=== PATIENT | female | born 1960 | race Caucasian/White ===

== ENCOUNTER → 2017-04-18 | Outpatient (CLI) | payer OTHER ==
[~2017-04-18] MED LIST: ALBUTEROL17 GM INH; ASPIRIN PO; BENICAR PO; CIPRO250 M1 PO; CLARITIN PO; FLAGYL250 MG PO; FLEXERIL PO; FLEXERIL10 MG PO; FLOMAX0.4 MG PO; GUAIFENESIN/CODEINE; HIGH BLOOD PRESS MED PO; HYDROCODON-ACE1 EAC9 PO; IBUPROFEN PO; LINZESS PO; LORAZEPAM PO; LORTAB 5/500 TA1 TA2 PO; LORTAB 7.5-5001 TAB PO; NAPROSYN500 MG PO; NAPROXEN PO; PERCOCET5/325 PO; PRILOSEC PO; SKELAXIN PO; ZOFRAN ODT4 MG PO; ZOFRAN PO; [UNRECOGNIZED DRUG - REMARK]
--- NOTE | ~2017-04-18 | CT2 ---
[facility] RADIOLOGY TEXT RESULTS PATIENT: KATHRYN KELSEY LOCATION: [facility] : 58 UNIT #: [id number] AGE: [address]: ESTEE GAY APRN SEX: F ORDER DR: [id number] [address] [address] [id number] O MR#: [id number] Acc #: [id number] NAME: KATHRYN KELSEY : 1960 SEX: F STUDY DATE/TIME: 04/18/2017 13:07 UNIT: [facility] ROOM: STUDY DESCRIPTION: CT Abd and Pelv W Cont Attending Physician: Estee Gay Referring Physician: Estee Gay Ordering Physician: Cynthia Gay A.P.R.N. Primary Care Physician: Nolberto Wilde M.D. MEDICAL IMAGING REPORT This report is preliminary unless electronic signature is present. EXAM CT abdomen and pelvis INDICATIONS Chronic left lower quadrant abdominal pain. Low grade fever. Coccygeal pain. TECHNIQUE CT of the abdomen and pelvis with p.o. and IV contrast (100 mL Isovue-370 IV contrast). Coronal and sagittal reconstructions were obtained. This CT exam was performed with one or more of the following radiation dose reduction techniques: automatic exposure control, adjustment of mA and/or kV according to patient size, and iterative reconstruction. COMPARISON CT abdomen and pelvis dated 10/24/2016 FINDINGS The solid abdominal organs are within normal limits. The gallbladder is not distended. There are extensive colonic diverticulosis, however no diverticulitis. The abdominal aorta is normal in caliber. There is a small umbilical hernia containing omental fat. There is extensive left-sided colonic diverticulosis, but no diverticulitis. The bladder is unremarkable. Uterus and ovaries are surgically absent. IMPRESSION 1. No acute findings in the abdomen or pelvis. 2. Colonic diverticulosis without diverticulitis. [facility] RADIOLOGY TEXT RESULTS PATIENT: KATHRYN KELSEY LOCATION: [facility] : 58 UNIT #: [id number] AGE: [address]: ESTEE GAY INTRAOPERATIVE NEURO TECH SEX: F ORDER DR: 3. Uncomplicated umbilical hernia. Dictated by... Donnie Harvey M.D. THIS IS AN ELECTRONICALLY VERIFIED REPORT Donnie Harvey M.D. at 04/19/2017 8:15 AM C/katelynn TD: 04/18/2017 17:35 JOB #: [id number] MEDICAL IMAGING REPORT Page 1 of 1
[2017-04-18 11:50] LABS: POC - CREATININE 0.92 mg/dL (0.44-1.03); POC - GFR >60.0 mL/min (>60)
== END | disposition home or self-care (01) ==
LOC: SCT 10:57
PROVIDERS: Nurse Practitioner Family
DX: K57.32 Diverticulitis of large intestine without perforation or abscess without bleeding (principal); K57.30 Diverticulosis of large intestine without perforation or abscess without bleeding; K42.9 Umbilical hernia without obstruction or gangrene
CPT/HCPCS: 74177; 82565; Q9967